=== PATIENT | male | born 1990 | race African-American/Black ===

== ENCOUNTER 2016-12-15 06:12 | Emergency (ER) | payer SELFPAY ==
--- NOTE | 2016-12-15 07:29 | ER Document Report ---
HPI - HPI Patient complains to provider of: left lateral chest wall pain Onset: Last week Onset/Duration: Persistent Pain Level: 3 Context: 26-year-old male complaining of left lateral chest wall pain waist into the left shoulder especially when he moves in the middle of the night and is unable to sleep due to the pain. He thinks he might have strained. But does not remember specifically. It started last week. No shortness of breath. No recent upper respiratory infection. No fever. Associated Symptoms: None Exacerbated by: Movement Relieved by: Denies Similar symptoms previously: No Recently seen / treated by doctor: No - ROS ROS below otherwise negative: Yes Systems Reviewed and Negative: Yes All other systems reviewed and negative - DERM Skin Color: Normal Past Medical History - General Information source: Patient - Social History Smoking Status: Unknown if Ever Smoked Frequency of alcohol use: None Drug Abuse: None Occupation: Unemployed Lives with: Family Family History: Reviewed & Not Pertinent - Medical History Medical History: Negative Renal/ Medical History: Denies: Hx Peritoneal Dialysis Surgical Hx: Negative Vertical Provider Document - CONSTITUTIONAL Agree With Documented VS: Yes Exam Limitations: No Limitations General Appearance: No Apparent Distress - HEENT HEENT: Normal ENT Exam - NECK Neck: Supple - RESPIRATORY Respiratory: Breath Sounds Normal, No Respiratory Distress O2 Sat by Pulse Oximetry: 100 Notes: Tender left lateral mid axillary line from Axilla to waist - CARDIOVASCULAR Cardiovascular: Regular Rate, Regular Rhythm - GI/ABDOMEN Gastrointestinal: Abdomen Soft, Abdomen Non-Tender - BACK Back: Normal Inspection - MUSCULOSKELETAL/EXTREMETIES Musculoskeletal/Extremeties: MAEW, FROM - NEURO Level of Consciousness: Awake, Alert, Appropriate - DERM Integumentary: Warm, Dry, No Rash Course - Re-evaluation Re-evalutation: 12/15/16 09:10 had difficulty awaking the pt, had to touh his leg and ask him several times to wake up.Xray negative. explained to pt it was lateral chest muscle strain. - Vital Signs Vital signs: Temp Pulse Resp BP Pulse Ox 98.1 F 73 18 142/67 H 100 12/15/16 06:33 12/15/16 06:33 12/15/16 06:33 12/15/16 06:33 12/15/16 06:33 Discharge - Discharge Clinical Impression: Left lateral rib pain Condition: Good Disposition: HOME, SELF-CARE Instructions: Anti-Inflammatory Medication ([facility]), Chest Wall Pain ([facility]) Additional Instructions: warm compress gentle stretching motrin for pain to er if worse Please complete the patient satisfaction survey if you get one, and return it.. If you do not receive a survey, then you can go to the [facility] website, [email or web address] and place your comments about your very good care. Thank you very much. It was a pleasure being your medical provider today. Prescriptions: Ibuprofen [Motrin 800 mg Tablet] 800 mg PO Q8HP PRN #30 tablet PRN Reason:
[2016-12-15] MEDS ORDERED: IBUPROFEN 800 MG TABLET PO ONE (07:49)
--- NOTE | 2016-12-15 08:24 | RADIOLOGY REPORT (SQ) ---
EXAM DESCRIPTION: RIBS LEFT W/PA CHEST COMPLETED DATE/TIME: 12/15/2016 8:17 am REASON FOR STUDY: pain COMPARISON: None. TECHNIQUE: Frontal view of the chest and additional views of the left ribs acquired. NUMBER OF VIEWS: Three view. LIMITATIONS: None. FINDINGS: FRONTAL CXR: No pneumothorax. No pleural effusion. No atelectasis or infiltrates. RIBS: No displaced rib fractures. No lytic or blastic bony lesions. OTHER: No other significant finding. IMPRESSION: NO PNEUMOTHORAX. NO DISPLACED RIB FRACTURES. COMMENT: SITE OF TRAUMA/COMPLAINT MARKED/STAMP COMPLETED: YES. TECHNICAL DOCUMENTATION: JOB ID: [id number] [email or web address] All Rights Reserved
[2016-12-15 09:17] VITALS: BP 127/72
== END 2016-12-15 09:14 | disposition home or self-care (01) ==
LOC: ER 06:12
DX: R07.81 Pleurodynia (principal); R07.89 Other chest pain; M25.512 Pain in left shoulder
CPT/HCPCS: 99283